=== PATIENT | female | born 1985 | race Caucasian/White ===

== ENCOUNTER → 2021-06-07 14:19 | Outpatient (BNVA) | payer BC, SELFPAY | PROVIDERS: PCP Pediatrics; Visit Provider Anesthesiology ==

== ENCOUNTER 2025-02-13 12:58 | Outpatient (AMB) | payer OTHER, SELFPAY ==
--- NOTE | 2025-02-13 13:13 | A.OFFVIS_ITS ---
Intake Visit Reasons: Follow up, Headaches/new symptoms Allergies No Known Allergies Allergy (Verified 06/07/21 14:31) HPI Comments Details: The patient is a 39-year-old female presenting with intermittent muscle twitching occurring primarily in the left hand. She describes these episodes happening sporadically and may not be associated with particular triggers, though stress is noted to potentially exacerbate the condition. There is no associated pain, numbness, or mental confusion reported. Although the patient had already undergone a brain MRI, which did not reveal any significant abnormality, the concern remains about the nature of these muscle twitches. No history of seizure-like episodes has been given. The patient is also noted to be overweight, weighing 240 pounds, which is a concern discussed in terms of the need for weight management to assist with her overall health. [facility] Medical History (Updated 02/13/25 @ 13:35 by Jessi Tyler MD) Sacroiliitis Disc degeneration, lumbar Spondylosis of lumbar spine Papanicolaou smear of cervix with low grade squamous intraepithelial lesion (LGSIL) Depression Anxiety Panic disorder with agoraphobia Dermatographia Obsessive compulsive disorder Muscle twitching Review of Systems Narrative Constitutional:?No fever, chills, fatigue, weight loss, or night sweats. HEENT:?No headache, vision changes, hearing loss, nasal congestion, sore throat. Neurological:?No dizziness, syncope, seizures, numbness, tingling, weakness, tremors, memory loss. Psychiatric:?No anxiety, depression, mood swings, sleep disturbance, or hallucinations. Endocrine:?No heat/cold intolerance, polydipsia, polyuria, or hair/skin changes. Hematologic/Lymphatic:?No easy bruising, bleeding, or lymphadenopathy. Integumentary (Skin):?No rash, lesions, itching, or color changes. ? Physical Exam Neuro Other: Mental Status: Alert and oriented to person, place, and time. Normal attention. Normal s pontaneous speech, fluency, and comprehension. No obvious issues with mood and memory. Affect is appropriate. Cranial Nerves: CN II: Visual brown full to confrontation, visual acuity intact. CN III, IV, : Pupils equal, round, reactive to light and accommodation. Extraocular movements are normal. CN V: Facial sensation is normal. CN VII: Facial movements symmetrical. CN VIII: Hearing intact to bedside conversation is normal. CN IX, X: Palate elevates symmetrically. CN XI: Shoulder shrug and head turn symmetrical. CN XII: Tongue midline without atrophy or fasciculations. Motor: Bulk and tone normal in all extremities. No significant muscle weakness in arms and legs. No drift. Reflexes: Deep tendon reflexes 2+ and symmetric. Plantar response down-going bilaterally. Coordination: [id number] and qaam-ey-tove testing normal. No dysmetria. Gait and Station: No obvious gait abnormality. No ataxia or instability. Intermittent jerking of left thumb and index finger was noted. This was while we were conversing with no sign of mental confusion or change in her speech. Extrapyramidal: Full facial expressions and blinking. No rigidity. Movements are appropriate with no tremor or abnormality. Speech: Normal; no dysarthria or tremor. 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 She was educated about this concept. For now reassurance and education was needed. If situation would worsened I might consider some investigations but in most cases this is a sporadic condition not requiring any intervention. Potentially there acquired or hereditary causes. Sometime it is noted more after repetitive or heavy physical activity. Coding Level of Care Code New Pt Level 4 (29702) Diagnoses Migraine without aura and without status migrainosus, not intractable G43.009 Intractability: not intractable Status migrainosus presence: without status migrainosus Muscle twitching R25.3 Neuromyotonia G71.19
--- OUTSIDE RECORDS SUMMARY | 2025-02-13 16:08 | XMS_ITS | Encounter Summary ---
Author Organization [facility] Address [address] [place] [id number] Care Team Providers Care Seaman Name Role Phone Chele Quigley MD Primary Care Provider Encounter Details Date Type Department Care Team (Late st Contact Info) Description 02/13/2025 myChart Message [facility] Neurology [address] [place] [phone] Angel Irby MD [address] [place] [phone] insurance Social History Tobacco Use Types Packs/Day Years Used Date Smoking Tobacco: Never Smokeless Tobacco: Never Alcohol Use Standard Drinks/Week Comments Never 0 (1 standard drink = 0.6 oz pur e alcohol) Comments Unknown Sex and Gender Information Value Date Recorded Sex Assigned at Not on file Legal Sex Female 1:49 PM EST Gender Identity Not on file Sexual Orientation Not on file documented as of this encounter Plan of Treatment Upcoming Encounters Date Type Department Care Team (Late st Contact Info) Description 04/02/2025 3:30 PM EST Follow-Up [facility] Neurology [address] [place] [phone] Angel Irby MD [address] [place] [phone] documented as of this encounter Visit Diagnoses Not on filedocumented in this encounter Care Teams Seaman Relationship Specialty Start Date End Date Chele Quigley MD [address] [place] [id number] PCP - General 02/13/25 documented as of this encounter
--- OUTSIDE RECORDS SUMMARY | 2025-02-13 16:09 | XMS_ITS | Clinical Summary ---
Author Organization [facility] Address [address] [place] [address] Care Team Providers Care Microfilm Technician Name Role Phone Chele Quigley MD Primary Care Provider Allergies No known active allergies Medications escitalopram (LEXAPRO) 20 mg tablet Take 20 mg by mouth daily. Active escitalopram (LEXAPRO) 10 mg tablet Take 10 mg by mouth daily. Active naproxen (NAPROSYN) 500 mg tablet Take 500 mg by mouth 2 times a day with meals. Active traZODone (DESYREL) 50 mg tablet TAKE 1 TABLET BY MOUTH EVERY DAY AT BEDTIME NEEDED 08/24/2020 Active Active Problems Problem Noted Date Diagnosed Date Chronic low back pain 02/07/2021 Anxiety and depression 02/07/2021 Muscle twitching 02/07/2021 Obsessive-compulsive disorder 02/07/2021 White matter lesion of central nervous system Encounters Date Type Department Care Team Description 02/13/2025 myChart Message [facility] Neurology [address] [place] [phone] Angel Irby MD insurance from Last 3 Months Social History Tobacco Use Types Packs/Day Years Used Date Smoking Tobacco: Never Smokeless Tobacco: Never Alcohol Use Standard Drinks/Week Comments Never 0 (1 standard drink = 0.6 oz pur e alcohol) Comments Unknown Sex and Gender Information Value Date Recorded Sex Assigned at Not on file Legal Sex Female 1:49 PM EST Gender Identity Not on file Sexual Orientation Not on file Last Filed Vital Signs Vital Sign Reading Time Taken Comments Blood Pressure 130/80 04/28/2021 1:50 PM EST Pulse 66 04/28/2021 1:50 PM EST Temperature - - Respiratory Rate 17 04/28/2021 1:50 PM EST Oxygen Saturation 98% 04/28/2021 1:50 PM EST Inhaled Oxygen Concentration - - Weight 105.2 kg (232 lb) 04/28/2021 1:50 PM EST Height 165.1 cm (5' 5 ) 04/28/2021 1:50 PM EST Body Mass Index 38.61 04/28/2021 1:50 PM EST Plan of Treatment Upcoming Encounters Date Type Department Care Team (Late st Contact Info) Description 04/02/2025 3:30 PM EST Follow-Up [facility] Neurology [address] [place] [address] Angel Irby MD [address] [place], [place] [phone] Health Maintenance Due Date Last Done Comments Cervical Cancer Screening 1983 HIV Screening 1983 HPV and Pap Smear 1983 Hepatitis C Screening 1983 Pap Smear 1983 Varicella Vaccines (1 of 2 - 13+ 2-dose series) 1996 Hepatitis B Vaccines (1 of 3 - 19+ 3-dose series) 2002 Mammogram 2023 Alcohol/Substance Use Screening 04/24/2024 Depression Screening and Follow-Up 04/24/2024 Social Drivers of Health Annual Screening 04/24/2024 DTaP,Tdap,and Td Vaccines (2 - Td or Tdap) 06/11/2024 06/11/2014 COVID-19 Vaccine (3 - 2024-2 6 season) 2024 07/26/2020, 07/05/2020 Influenza Vaccine (#1) 2024 RSV Vaccine (60+ years old and patients) (1 - 1-dose 75+ series) 2058 Pneumococcal Vaccine: Pediatric (0-5 Years) and At-Risk Patients (6-50 Years) Aged Out No longer eligible based on patient's age to complete this topic Insurance [facility] Care Teams Microfilm Technician Relationship Specialty Start Date End Date Chele Quigley MD [address] [place] [address] PCP - General 02/13/25
--- OUTSIDE RECORDS SUMMARY | 2025-02-13 16:09 | XMS_ITS | Encounter Summary ---
Author Organization [facility] Address [address] [place] [address] Care Team Providers Care It Applications Developer Name Role Phone Chele Quigley MD Primary Care Provider Encounter Details Date Type Department Care Team (Late st Contact Info) Description 04/29/2024 Nurse Triage Adult Medicine [address] [phone] Jessica Salazar MD [address] [place] [address] Social History Tobacco Use Types Packs/Day Years Used Date Smoking Tobacco: Never Smokeless Tobacco: Never Alcohol Use Standard Drinks/Week Comments No 0 (1 standard drink = 0.6 oz pur e alcohol) Comments Unknown Sex and Gender Information Value Date Recorded Sex Assigned at Female 09/19/2024 9:17 PM EDT Legal Sex Female 10:12 PM EST Gender Identity Female 09/19/2024 9:17 PM EDT Sexual Orientation Choose not to disclose 2024 12:38 PM EDT documented as of this encounter Progress Notes * Shawna Joseph RN - 04/29/2024 12:05 PM EST Reason for Disposition ??? Substance use (drug use) or unhealthy alcohol use, known or suspected Answer Assessment - Initial Assessment Questions 1. DESCRIPTION: Describe your dizziness. Feels heaviness in her head 2. LIGHTHEADED: Do you feel lightheaded? (e.g., somewhat faint, woozy, weak upon standing) No 3. VERTIGO: Do you feel like either you or the room is spinning or tilting? (i.e., vertigo) No 4. SEVERITY: How bad is it? Do you feel like you are going to faint? Can you stand and walk? - MILD: Feels slightly dizzy, but walking normally. - MODERATE: Feels unsteady when walking, but not falling; interferes with normal activities (e.g., school, work). - SEVERE: Unable to walk without falling, or requires assistance to walk without falling; feels like passing out now. Mild 5. ONSET: When did the dizziness begin? 2 weeks 6. AGGRAVATING FACTORS: Does anything make it worse? (e.g., standing, change in head position) none 7. HEART RATE: Can you tell me your heart rate? How many beats in 15 seconds? (Note: Not all patients can do this.) No 8. CAUSE: What do you think is causing the dizziness? (e.g., decreased fluids or food, diarrhea, emotional distress, heat exposure, new medicine, sudden standing, vomiting; unknown) Concerned it might from stopping Prozac but that was 2 months ago 9. RECURRENT SYMPTOM: Have you had dizziness before? If Yes, ask: When was the last time? Whathappened that time? none 10. OTHER SYMPTOMS: Do you have any other symptoms? (e.g., fever, chest pain, vomiting, diarrhea,bleeding) Pt denies any chest pain or SOB, denies any changes in HR, no recent N/V/D or head trauma, fells pressure on the left side of the head , not worst CARDOZO ever, pt has no confusion or changes in speech, no weakness or numbness, denies changes in vision., , pt has not changed or stopped medication or caffeine intake recently Pt to see dr salazar tomorrow at 12:30 11. : Is there any chance you are ? When was your last menstrual period? no Protocols used: Dizziness - [id number] * Misty Sanchez - 04/29/2024 11:37 AM EST Patient call requires triage: Symptoms patient is presenting: headache and dizziness How long has patient had these symptoms?: a week For ALL patients calling to schedule any appointment (routine, sick visit, follow up, consult, etc.) in the outpatient setting please ask the following questions: Do you have fever of higher than 101, sore throat with difficulty swallowing or severe shortness ofbreath? no If YES to any of these above symptoms, send a message to triage and do not book. Red dot. If no, an audio or video visit should be booked. Have you had close contact with someone with Coronavirus in the last 14 days? no Have you traveled abroad? no Have you traveled recently to another state outside of [place], [place], [place], [place], [place], [place], [place]? no o If yes, did you quarantine for 14 days or have a negative covid test? no If yes to any of the above, patient is not to be scheduled in office until after 14 day quarantine or negative covid test. If pain or injury related was it due to an accident at work or from a motor vehicle accident? If yes, date of accident/Injury: No If yes, gather 3rd republican insurance information Third Libertarian Information: not applicable PCP: Jessica Salazar MD Payor: [facility] / Plan: [facility] / Product Type: *No Product type* / documented in this encounter Plan of Treatment Upcoming Encounters Date Type Department Care Team (Late st Contact Info) Description 02/26/2025 8:30 AM EST Office Visit Orthopedics [place] [id number] [place] [phone] Jordon Alejandro PA [address] [place] [address] 03/07/2025 8:00 AM EST Office Visit [facility] [address] [place] [address] Ralf Herron CNM [address] [place] [address] 03/25/2025 9:00 AM EST Office Visit Adult Medicine [facility] [address] [place], [place] [phone] Chele Quigley MD [address] [place], [place] 06/26/2025 8:20 AM EST Office Visit [facility] [address] [place] [address] Codey Guerra MD [address] [place] [address] documented as of this encounter Visit Diagnoses Not on filedocumented in this encounter Care Teams It Applications Developer Relationship Specialty Start Date End Date Chele Quigley MD [address] [place] [address] PCP - General Internal Medicine 09/18/24 documented as of this encounter
--- OUTSIDE RECORDS SUMMARY | 2025-02-13 16:09 | XMS_ITS | Encounter Summary ---
Author Organization [facility] Address [address] [place] [address] Care Team Providers Care Medical Insurance Claims Specialist Name Role Phone Chele Quigley MD Primary Care Provider Reason for Referral * Consultation (Routine) - Closed Specialty Diagnoses / Procedures Referred By Contac t Referred To Contact Cardiology Diagnoses Bradycardia Jessica Gtz MD [address] [place] [address] Phone: tel: fax: [facility] 3rd floor [place], [place] Phone: tel: fax: Referral ID Status Reason Start Date Expiration Date V isits Requested Visits Authorized [id number] Closed Specialty Services Required 09/13/2024 09/13/2025 1 1 Encounter Details Date Type Department Care Team (Late st Contact Info) Description 08/28/2024 Nurse Triage Adult Medicine [address] [phone] Jessica Gtz MD [address] [place] [address] Social History Tobacco Use Types Packs/Day Years Used Date Smoking Tobacco: Never Smokeless Tobacco: Never Alcohol Use Standard Drinks/Week Comments Yes 0 (1 standard drink = 0.6 oz pur e alcohol) rarely Comments No Sex and Gender Information Value Date Recorded Sex Assigned at Female 09/19/2024 9:17 PM EDT Legal Sex Female 10:12 PM EST Gender Identity Female 09/19/2024 9:17 PM EDT Sexual Orientation Choose not to disclose 2024 12:38 PM EDT documented as of this encounter Progress Notes * Jessica Gtz MD - 09/13/2024 4:07 PM EDT Cardiology referral placed * Milka Orourke RN - 09/13/2024 4:00 PM EDT Was seen for symptoms and discussed with Dr. Gtz Stress test and Holter monitor done Provider advised that referral would be next step. Please advise on cardiology referral * Shawna Joseph RN - 08/29/2024 12:14 PM EDT 07/10 message left for to call to make an appointment for f/u encounter closed as no call back from pt Pt needs f/u to consider cardiology referral, Holter was done, lower rate at night but if still 47 needs eval Call to pt. Left message for pt to call triage documented in this encounter Plan of Treatment Upcoming Encounters Date Type Department Care Team (Late st Contact Info) Description 02/26/2025 8:30 AM EST Office Visit Orthopedics - [place] [address] [place] [address] Jordon Alejandro PA [address] [place] [address] 03/07/2025 8:00 AM EST Office Visit Obstetrics [facility]cology [facility] [place] [address] [place] [address] Ralf Herron CNM [address] [place] [address] 03/25/2025 9:00 AM EST Office Visit Adult [facility] [address] [place], [place] [phone] Chele Quigley MD [address] [place], [place] 06/26/2025 8:20 AM EST Office Visit [facility] [address] [place] [phone] Codey Guerra MD [address] [place] [address] Scheduled Referrals Name Type Priority Associated Diagnoses Order Schedule Ambulatory referral to Cardiology Outpatient Referral Routine Bradycardia 1 Occurrences starting 09/13/2024 until 09/13/2025 documented as of this encounter Visit Diagnoses Diagnosis Bradycardia- Primary Other specified cardiac dysrhythmias documented in this encounter Care Teams Medical Insurance Claims Specialist Relationship Specialty Start Date End Date Cheel Quigley MD [address] [place] [address] PCP - General Internal Medicine 09/18/24 documented as of this encounter
--- OUTSIDE RECORDS SUMMARY | 2025-02-13 16:09 | XMS_ITS ---
Author Name [facility] Organization Unknown Care Team Organization Name Specialty Phone Email Start Date End Da te [facility] Jessica Gtz Primary Care 09/30/2022 02 4 [facility] SHANI VICENTE Primary Care [email or web address] 05/02/2022 4 [facility] Termed, PROVIDER Primary Care 03/01/202211/22 4
--- OUTSIDE RECORDS SUMMARY | 2025-02-13 16:09 | XMS_ITS | Clinical Summary ---
Author Organization [facility] [address] [place] [address] [place] [phone] Phone Care Team Providers Care Liner Man Name Role Phone Chele Quigley MD Primary Care Provider Allergies No known active allergies Medications albuterol HFA (PROAIR HFA ; PROVENTIL HFA ; VENTOLIN HFA) 90 mcg/actuation inhalerIndication s:Mild intermittent asthma without complication Inhale 2 puffs by mouth every 6 (six) hours if needed for wheezing. 6.7 g 5 Active hydrOXYzine HCL (ATARAX) 10 mg tablet Take 1 tablet (10 mg total) by mouth 3 (three) times a day. 30 tablet 5 Active Denta 5000 Plus 1.1 % cream APPLY TWICE A DAY AFTER A MEAL LEAVE ON FOR 5 MIINUTES THEN RINSE 5 Active M-Jeni Plus 27 mg iron- 1 mg tablet Take 1 tablet by mouth 1 (one) time each day. 5 Active PreviDent 5000 Sensitive 1.1-5 % paste dental paste APPLY TWICE A DAY AFTER MEALS, LEAVE ON FOR 5 MINUTES, RINSE. 5 Active meloxicam (MOBIC) 7.5 mg tablet Take 1 tablet (7.5 mg total) by mouth 1 (one) time each day. 30 tablet 2 5 Active FLUoxetine (PROzac) 10 mg capsule Take 1 capsule (10 mg total) by mouth 1 (one) time each day. 90 each 1 5 05/20/19 26 Active naproxen sodium (ANAPROX) 550 mg tablet TAKE 1 TABLET BY MOUTH 2 TIMES A DAY WITH MEALS. 90 tablet 1 5 Active Active Problems Problem Noted Date Diagnosed Date Lumbar radiculitis 01/16/2025 Positive JON (antinuclear antibody) 10/15/2024 Venous insufficiency 10/10/2024 Bradycardia 09/25/2024 Localized edema 09/25/2024 Asthma 02/13/2024 Fecal urgency 02/13/2024 Hyperprolactinemia (CMS/HCC V24) 02/13/2024 Obesity 02/13/2024 Passage of loose stools 02/13/2024 Alpha thalassemia silent carrier 12/29/2023 Benign breast disease 12/25/2022 Overview (02/13/2024): 10/[address] Guerra; left breast core biopsy- Pathology has revealed benign fibrous breast tissue with cystic apocrine metaplasia and adenosis. There is no atypia or neoplasm identified Endometriosis 04/24/2022 Overview (02/13/2024): 02/[address] guerra Noted at time of ovarian cystectomy with Dr. Guerra Last Assessment & Plan: We reviewed the diagnosis and implications of endometriosis. After reviewing Dr. Guerra's note, it does not seem that her disease was extensive, but could continue to increase over time which could result in scarring that makes conception more difficult. She was counseled re: usual horomanl suppression for management of pain. She is not sure if she would like to do this as she would like to conceive. It is not clear why OCP caused elevated transaminases, but more likely E2, for which there are no substitiutes. Micronor may or may not suppress endometriosis. She could consider Aygestin, but would still follow up with repeat LFT's after starting. She agreed. She will consider options. 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 Repeat Colposcopy - normal, no biopsies. Repeat co-testing 5/16 normal and HPV neg, can return to routine screen in 3 years. Iron deficiency anemia 10/10/2011 Encounters Date Type Department Care Team Description 01/20/2025 3:20 PM EDT Office Visit Gastroenterology [address] [place] [phone] Evelyne Page NP Irritable bowel syndrome with diarrhea (Primary Dx) 01/03/2025 9:00 AM EDT Office Visit Obstetrics and Gynecology [address] [phone] Stacey Storey PA Encntr for obstetrics gynecology md exam (general) (routine) w/o abn findings (Primary Dx); Cervical cancer screening; Encounter for breast cancer screening using non-mammogram modality; Screen for STD (sexually transmitted disease) 12/26/2024 10:20 AM EDT Office Visit [address] [phone] Codey Guerra MD At high risk for breast cancer (Primary Dx) 12/24/2024 7:00 AM EDT Treatment [facility] [address] [phone] Elva Hunter PT Acute pain of both knees (Primary Dx) 12/12/2024 2:34 PM EDT - 12/12/2024 11:59 PM EDT Hospital [facility] [address] [phone] Encounter for screening mammogram for breast cancer Discharge Disposition: Home or Self Care 12/12/2024 8:30 AM EDT Office Visit Orthopedics [address] [phone] Jordon Alejandro PA Acute pain of both knees (Primary Dx); Primary osteoarthritis of both hips 11/26/2024 7:00 AM EDT Treatment [facility] [address] [phone] Elva Hunter, PT Acute pain of both knees (Primary Dx) 11/21/2024 3:30 PM EDT Office Visit Adult Medicine [address] [phone] Chele Quigley MD Anxiety and depression (Primary Dx); Positive JON (antinuclear antibody) 11/19/2024 7:00 AM EDT Treatment [address] [phone] Elva Hunter, PT Acute pain of both knees (Primary Dx) 11/13/2024 9:00 AM EDT Consult Orthopedics [address] [phone] Jordon Alejandro PA Primary osteoarthritis of both hips (Primary Dx); Acute pain of both knees from Last 3 Months Immunizations Immunization Administration Dates Next Due Tdap Tetanus diptheria acell ular pertussis (Boostrix; Adacel) 7yo and older 06/11/2014 Surgical History Surgery Date Site/Laterality Comments OTHER SURGICAL HISTORY PROCEDURE: DENIES PREVIOUS SURGERY STEREOTACTIC CORE BIOPSY Medical History Medical History Date Comments Asthma DX:Asthma Other specified hemorrhagic conditions (CMS/HCC V24) 10/10/2011 DX:Other specified hemorrhag ic conditions (HCC) Iron deficiency anemia, unspecified 10/10/2011 DX:Iron deficiency anemia, unspecified Abdominal pain, unspecified site 10/10/2011 DX:Abdominal pain, unspecified site Dysmenorrhea 10/10/2011 DX:Dysmenorrhea Family history of malignant neoplasm of breast 10/10/2011 DX:Family history of maligna nt neoplasm of breast Family history of other spec ified malignant neoplasm 10/10/2011 DX:Family history of other specified malignant neoplasm; COMMENT: ovarian & fallopian tube Thrombocytopenia (CMS/HCC V24) D X:Thrombocytopenia (HCC); COMMENT: Sonia Black History of PCOS DX:History of PC OS; COMMENT: 2011 regular Overweight(278.02) DX:Overweight (278.02) Hyperprolactinemia (CMS/HCC V24) DX:Hyperprolactinemia (HCC) Ovarian cyst, left 03/2020 DX:Ovarian cy st, left; COMMENT: 3.8 x 3.5 x 2.0cm OCD (obsessive compulsive disorder) DX:OCD (obsessive compulsive disorder) Abdominal pain 10/10/2011 DX:Abdominal willie n Passage of loose stools DX:Passa ge of loose stools Fecal urgency DX:Fecal urgency Irritable bowel syndrome DX:Irri table bowel syndrome Depressive disorder DX:Depressiv e disorder Chronic left upper quadrant pain DX:Chronic left upper quadrant pain Change in bowel habits DX:Change in bowel habits Elevated liver enzymes DX:Elevat ed liver enzymes Endometrial polyp 10/05/2023 DX:Endometrial polyp; COMMENT: 10/[address] Thomas planning for hysterscopy, Polypectomy Family History Medical History Relation Name Comments Hypertension Brother 1 Jason Asthma Brother 2 Fahad Hypertension Brother 2 Fahad Alcohol abuse Brother 3 Peter Hypertension Father Uterine cancer Maternal Grandmother Other cancer Mother fallopian tube Prostate cancer Paternal Grandfather Breast cancer Paternal Grandmother Diabetes Paternal Grandmother Colon cancer Neg Hx Relation Name Status Comments Brother 1 Jason Alive HTN Brother 2 Fahad Alive Brother 3 Milan (Age 42) Brother 4 Imtiaz Alive Father Alive HTN Maternal Grandfather Maternal Grandmother Mother Alive arthritis, pneu monia, chronic lung disease, fallopian tube cancer, joint problems Paternal Grandfather Alive Paternal Grandmother Alive Social History Tobacco Use Types Packs/Day Years Used Date Smoking Tobacco: Never Smokeless Tobacco: Never Tobacco Cessation:Counseling Given: Not Answered Alcohol Use Standard Drinks/Week Comments Yes 0 (1 standard drink = 0.6 oz pur e alcohol) rarely Housing Instability Answer Date Recorde d Are you worried that in the next 2 months you may not have stable housing? No 11/21/2024 Food Access & Nutrition Answer Date Rec orded Do you have access to a vari ety of food including fruits and vegetables? Yes 11/21/2024 Health Literacy Answer Date Recorded How often do you need to hav e someone help you when you read instructions, pamphlets, or other written material from your doctor or pharmacy? Never 11/21/2024 Caregiver: How often do you need to have someone help you when you read instructions, pamphlets, or other written material from your doctor or pharmacy? Not on file 11/21/2024 Financial Risk Answer Date Recorded How hard is it for you to pa y for the very basics like food, housing, medical care, and air conditioning / heating? Not very hard 11/21/2024 Transportation Answer Date Recorded Has the lack of transportati on kept you from meetings, work, or from getting things needed for daily living? No Has the lack of transportati on kept you from medical appointments or from getting medications? No 11/21/2024 Social Isolation Answer Date Recorded How often do you feel lonely or isolated from th ose around you? Never 11/21/2024 Food Risk Answer Date Recorded Within the past 12 months we worried whether our food would run out before we got money to buy more. Never true 11/21/2024 Within the past 12 months th e food we bought just didn't last and we didn't have money to get more. Never true 11/21/2024 Dependent Care Answer Date Recorded Do you need help finding or paying for care for your loved ones. For example, early childhood teacher or elderly care for an older adult? No 11/21/2024 Education Answer Date Recorded Do you think completing more education or training, like finishing a GED, going to college, or learning a trade, would be helpful for you? No 11/21/2024 Employment and Income Answer Date Recor ded During the last four weeks, have you been actively looking for work? No 11/21/2024 Living Situation Answer Date Recorded What is your living situation? Unrecognized valu e 11/21/2024 Comments No Sex and Gender Information Value Date Recorded Sex Assigned at Female 09/19/2024 9:17 PM EDT Legal Sex Female 10:12 PM EST Gender Identity Female 09/19/2024 9:17 PM EDT Sexual Orientation Choose not to disclose 2024 12:38 PM EDT Obstetrics History Para Term AB IAB SAB Ectopic Multiple Livin g Live Births 0 0 0 0 0 0 0 0 Last Filed Vital Signs Vital Sign Reading Time Taken Comments Blood Pressure 120/80 01/20/2025 3:15 PM EDT Pulse 63 01/20/2025 3:15 PM EDT Temperature 36.4 C (97.6 F) 12/26/2024 10:48 AM EDT Respiratory Rate 16 12/12/2024 8:32 AM EDT Oxygen Saturation 97% 01/20/2025 3:15 PM EDT Inhaled Oxygen Concentration - - Weight 104 kg (228 lb 3.2 oz) 01/20/2025 3:15 PM EDT Height 165.1 cm (5' 5 ) 01/20/2025 3:15 PM EDT Body Mass Index 37.97 01/20/2025 3:15 PM EDT Plan of Treatment Upcoming Encounters Date Type Department Care Team (Late st Contact Info) Description 02/26/2025 8:30 AM EST Office Visit Orthopedics [address] [phone] Jordon Alejandro PA [address] [place] [phone] 03/07/2025 8:00 AM EST Office Visit Obstetrics and Gynecology - [facility] [address] [place], [place] [phone] Ralf Herron, [facility] [address] [place] [address] 03/25/2025 9:00 AM EST Office Visit [facility] - [address] [phone] Chele Quigley MD [address] [place] [address] 06/26/2025 8:20 AM EST Office Visit [facility] [address] [phone] Codey Guerra MD [address] [place] [address] Health Maintenance Due Date Last Done Comments Hepatitis B Vaccines (1 of 3 - 19+ 3-dose series) 2002 Pneumococcal Vaccine: Pediatrics (0 to 5 Years) and At-Risk Patients (6 to 49 Years) (1 of 2 - PCV) 2002 HPV Vaccines (1 - 3-dose SCD M series) 2010 DTaP,Tdap,and Td Vaccines (2 - Td or Tdap) 06/11/2024 06/11/2014 COVID-19 Vaccine (4 - 2024-2 6 season) 2024 10/18/2021, 07/26/2020, 07/05/2020 Influenza Vaccine (#1) 2024 Social Influencers of Health Screening 11/21/2025 11/21/2024 Breast Cancer Screening 12/12/2026 12/13/19 25, 10/30/2023, 10/03/2022 Cholesterol Screening (Lipid Panel) 10/01/2028 10/02/2023, 10/02/2023 Cervical Cancer Screening: HPV 01/03/2030 0 01/03/2025, 08/26/2020 RSV Immunization Adult Patients (1 - 1-dose 75+ series) 2058 HIV Screening Completed 09/23/2021 Hepatitis C Screening Completed 01/09/2023 Depression Screening Completed 11/21/2024, 12/13/2023 HIB Vaccines Aged Out No longer eligi ble based on patient's age to complete this topic Hepatitis A Vaccines Aged Out No long er eligible based on patient's age to complete this topic IPV Vaccines Aged Out No longer eligi ble based on patient's age to complete this topic MMR Vaccines Aged Out No longer eligi ble based on patient's age to complete this topic Meningococcal ACWY Vaccine Aged Out N o longer eligible based on patient's age to complete this topic Meningococcal B Vaccine Aged Out No l onger eligible based on patient's age to complete this topic RSV Immunization Patients Under 20 months Aged Out No longer eligible b ased on patient's age to complete this topic Varicella Vaccines Aged Out No longer eligible based on patient's age to complete this topic Procedures Procedure Name Priority Date/Time Associated Diagnosis Comments PAP SMEAR Routine 01/03/2025 9:43 AM EDT Cervical cancer screening HPV WITH REFLEX GENOTYPE Routine 01/03/2025 9:43 AM EDT Cervical cancer screening CHLAMYDIA TRACHOMATIS AND NEISSERIA GONORRHOEAE PCR Routine 01/03/2025 9:43 AM EDT Encntr for obstetrics gynecology md exam (general) (routine) w/o abn findings Screen for STD (sexually transmitted disease) MG MAMMO DIGITAL SCREENING W MENG BILAT Routine 12/12/2024 3:09 PM EDT Encounter for screening mammogram for breast cancer DEPRESSION SCREENING Routine 12/13/2023 LIPID PANEL Routine 10/02/2023 HEPATITIS C SCREENING Routine 01/09/2023 HIV SCREENING Routine 09/23/2021 from Last 3 Months or Most Recently Relevant to Health Maintenance Results * HPV with reflex genotype (01/03/2025 9:43 AM EDT) HPV Negative Negative LAB MICROBIOLOGY METHOD 01/09/2025 2:44 PM EDT [facility] Brushing/Spatula Cervix uteri structure / Unknown 01/03/2025 9:43 AM EDT 01/06/2025 6:32 AM EDT us Stacey LUNA LAB MOLECULAR DIAGNOSTICS OR DERABLES Final Result [facility] [address] [place] [address], * Chlamydia trachomatis and Neisseria gonorrhoeae molecular study (01/03/2025 9:43 AM EDT) Neisseria gonorrhoeae PCR Negative Negative LAB MOLECULAR DIAGNOSTICS METHOD 01/04/2025 9:41 AM EDT [facility] Chlamydia trachomatis PCR Negative Negative LAB MOLECULAR DIAGNOSTICS METHOD 01/04/2025 9:41 AM EDT [facility] Swab Vaginal structure / Unknown Non-blood Collection / Unknown 01/03/2025 9:43 AM EDT 01/03/2025 9:43 AM EDT us Stacey LUNA LAB MICROBIOLOGY - GENERAL O RDERABLES Final Result [facility] [address] [place] [address], [place] [phone] * Pap smear (01/03/2025 9:43 AM EDT) Interpretation Negative for intraepithelial lesion or malignancy 01/15/2025 4:35 PM EDT [facility] General Categorization Negative 01/15/2025 4:35 PM EDT [facility] LMP 12/20/2024 01/15/2025 4:35 PM EDT [facility] Specimen Adequacy Satisfactory for evaluation, endocervical/owens sformation zone component present 01/15/2025 4:35 PM EDT [facility] Pap Methodology Liquid Based Pap Test 01/15/2025 4:35 PM EDT [facility] Disclaimer The Pap test is a screening test which carries an inherent false negative rate. These test results should be correlated with the patient's clinical findings and history. This Pap test was processed using an automated screening system. Technical cytopathology services provided by [facility], at [address] [place] [id number] (CLIA # [id number]/Marquita Harrell MD, Security Compliance Engineer.) 01/15/2025 4:35 PM EDT [facility] Console Pap Interpretation Reported 01/15/2025 4:35 PM EDT [facility] Brushing/Spatula Cervix uteri structure / Unknown 01/03/2025 9:43 AM EDT 01/03/2025 9:43 AM EDT us Stacey LUNA LAB CYTOLOGY ORDERABLES Angie l Result [facility] [address] [place] [address], [place] [phone] * MG Mammo Digital Screening w Meng bilat (12/12/2024 3:09 PM EDT) Anatomical Region Laterality Modality Breast Bilateral Mammography 12/12/2024 3:18 PM EDT Impressions 12/12/2024 3:25 PM EDT No mammographic evidence of malignancy. No suspicious interval change. A negative mammogram in the presence of a clinically suspicious palpable abnormality does not preclude the possibility of malignancy or alter the indications for biopsy. ASSESSMENT: BI-RADS 1: NEGATIVE RECOMMENDATION(S): 1: Routine screening mammogram BILATERAL in 1 year. [facility] [address] [place], [address] -------- FINAL REPORT -------- Dictated By: Kwadwo Kate Dictated Date: 12/12/2024 15:18 ET Assigned Physician: Kwadwo Kate Reviewed and Electronically Signed By: Kwadwo Kate Signed Date: 12/12/2024 15:25 ET Workstation ID: [id number] Transcribed By: Self Edit Transcribed Date: 12/12/2024 15:18 ET Narrative 12/12/2024 3:25 PM EDT EXAM: SCREENING MAMMOGRAPHY, BILATERAL HISTORY: SCREENING. Paternal grandmother diagnosed with breast cancer age 47. COMPARISON: 10/30/23, 10/01/22 TECHNIQUE: Synthesized CC and MLO projections of each breast. Tomosynthesis of each breast in the CC and MLO projections. ADDITIONAL IMAGING: None Computer-aided detection was employed with the iCAD ProFound AI 3-D. TISSUE DENSITY: There are scattered areas of fibroglandular density. (BI-RADS category B) FINDINGS: RIGHT BREAST: No suspicious mass. No suspicious calcification. No distortion. No additional suspicious right breast findings LEFT BREAST: No suspicious mass. No suspicious calcification. No distortion. No suspicious change in the region of a biopsy site marker. No additional suspicious left breast findings Procedure Note Kwadwo Kate MD - 12/12/2024 EXAM: SCREENING MAMMOGRAPHY, BILATERAL HISTORY: SCREENING. Paternal grandmother diagnosed with breast cancerage 47. COMPARISON: 10/30/23, 10/01/22 TECHNIQUE: Synthesized CC and MLO projections of each breast.Tomosynthesis of each breast in the CC and MLO projections. ADDITIONAL IMAGING: None Computer-aided detection was employed with the [employer] Covalent Software AI 3-D. TISSUE DENSITY: There are scattered areas of fibroglandular density.(BI-RADS category B) FINDINGS: RIGHT BREAST: No suspicious mass. No suspicious calcification. No distortion. Noadditional suspicious right breast findings LEFT BREAST: No suspicious mass. No suspicious calcification. No distortion. Nosuspicious change in the region of a biopsy site marker. No additionalsuspicious left breast findings IMPRESSION: No mammographic evidence of malignancy. No suspicious interval change. A negative mammogram in the presence of a clinically suspicious palpableabnormality does not preclude the possibility of malignancy or alter theindications for biopsy. ASSESSMENT: BI-RADS 1: NEGATIVE RECOMMENDATION(S): 1: Routine screening mammogram BILATERAL in 1 year. [facility] [address], [address] -------- FINAL REPORT -------- Dictated By: Kwadwo Kate Dictated Date: 12/12/2024 15:18 ET Assigned Physician: Kwadwo Kate Reviewed and Electronically Signed By: Kwadwo Kate Signed Date: 12/12/2024 15:25 ET Workstation ID: [id number] Transcribed By: Self Edit Transcribed Date: 12/12/2024 15:18 ET us Self Referral Sppl IMG BI PROCEDURES Final Resul t * Hm Depression Screening (12/13/2023) Pathologist [facility] Depression Screening abstracted Historical Provider HEALTH MAINTENANCE Final Result * Lipid panel (10/02/2023) [facility] LDL/HDL Ratio 3 0 - 4 Triglycerides 62 0 - 150 mg/dL Cholesterol 147 0 - 200 mg/dL HDL 58 >=40 mg/dL LDL Cholesterol 77 0 - 100 mg/dL Blood Venous blood specimen / Unknown Result [facility] Historical Provider LAB BLOOD ORDERABLES Angie l Result * Hepatitis C Screening (01/09/2023) Pathologist [facility] Hepatitis C Screening abstracted [facility] Provider HEALTH MAINTENANCE Final Result * HIV Screening (09/23/2021) [facility] HIV Screening abstracted [facility] Provider HEALTH MAINTENANCE Final Result from Last 3 Months or Most Recently Relevant to Health Maintenance Insurance [facility] Advance Directives Documents on File Type Date Recorded Patient Park Activities Coordinator Expl anation Health Care Decision (hx) 03/16/2022 AD FONG DIRECTIVE Health Care Decision (hx) 03/16/2022 AD FONG DIRECTIVE Health Care Decision (hx) 03/16/2022 AD FONG DIRECTIVE Health Care Decision (hx) 03/16/2022 AD FONG DIRECTIVE Health Care Decision (hx) 03/16/2022 AD FONG DIRECTIVE Health Care Decision (hx) 03/16/2022 AD FONG DIRECTIVE Health Care Decision (hx) 03/16/2022 AD FONG DIRECTIVE Health Care Decision (hx) 03/16/2022 AD FONG DIRECTIVE Health Care Decision (hx) 03/16/2022 AD FONG DIRECTIVE Health Care Decision (hx) 03/16/2022 AD FONG DIRECTIVE Health Care Decision (hx) 03/16/2022 AD FONG DIRECTIVE Care Teams Liner Man Relationship Specialty Start Date End Date Chele Quigley MD [address] [place] [phone] PCP - General Internal Medicine 09/18/24
--- OUTSIDE RECORDS SUMMARY | 2025-02-13 16:09 | XMS_ITS | Encounter Summary ---
Author Organization [facility] Address [address] [place] [address] Care Team Providers Care Grout Machine Operator Name Role Phone Chele Quigley MD Primary Care Provider Encounter Details Date Type Department Care Team (Late st Contact Info) Description 02/03/2021 Telephone [facility] [address] [place] [address] [phone] Telephone Intake, Staff Social History Tobacco Use Types Packs/Day Years Used Date Smoking Tobacco: Never Smokeless Tobacco: Never Comments Unknown Sex and Gender Information Value Date Recorded Sex Assigned at Not on file Legal Sex Female 1:49 PM EST Gender Identity Not on file Sexual Orientation Not on file documented as of this encounter Plan of Treatment Upcoming Encounters Date Type Department Care Team (Late st Contact Info) Description 04/02/2025 3:30 PM EST Follow-Up [facility] Neurology [address] [place] [phone] Angel Irby MD [address] [place] [phone] documented as of this encounter Visit Diagnoses Not on filedocumented in this encounter Care Teams Grout Machine Operator Relationship Specialty Start Date End Date Chele Quigley MD [address] [place] [address] PCP - General 02/13/25 documented as of this encounter
== END 2025-02-13 14:42 | disposition home or self-care (01) ==
LOC: HO.HSM 12:58
PROVIDERS: PCP Pediatrics; Visit Provider Psychiatry & Neurology Neurology
DX: G43.009 Migraine without aura, not intractable, without status migrainosus (principal); R25.3 Fasciculation; G71.19 Other specified myotonic disorders
CPT/HCPCS: 99204